=== PATIENT | female | born 1935 | race Caucasian/White ===

== ENCOUNTER 2017-12-04 09:30 | Day surgery (SDC) | payer OTHER ==
[2017-12-04] MEDS ORDERED: PROPOFOL 20 ML ×2 (10:37→10:55)
[2017-12-04] MEDS ORDERED: LIDOCAINE 2% (SDV) 5 ML INJ (10:37)
== END 2017-12-04 11:17 | disposition home or self-care (01) ==
LOC: GIL 09:30
DX: K64.8 Other hemorrhoids (principal); Z86.010 Personal history of colon polyps; E78.5 Hyperlipidemia, unspecified
CPT/HCPCS: 45378; 82962